=== PATIENT | female | born 1975 | race Caucasian/White ===

== ENCOUNTER 2018-07-21 11:33 | Emergency (ER) | payer BC, OTHER ==
[~2018-07-21] VITALS: Ht 172.7 cm; Wt 108.0 kg
[2018-07-21 11:43] VITALS: BP_SYST 143
--- NOTE | 2018-07-21 11:48 | NUR ---
Patient to ER bed 4 to gown for evaluation. Side rails up. Report given to Manuel DENNIS.
--- NOTE | 2018-07-21 11:49 | NUR ---
Patient is awake, alert, and oriented x4. Patient reports waking up with redness and swelling to left side of face. Patient denies pain and pruritus at this time.
--- NOTE | 2018-07-21 12:04 | NUR ---
ER Dr. Kelly at bedside examining patient.
--- NOTE | 2018-07-21 12:38 | NUR ---
Patient given written and verbal discharge instructions and verbalizes understanding. ER MD Kelly discussed with patient the results and treatment provided. Patient in stable condition. ID arm band removed. Rx of Clindamycin 300mg QID x 40 given. Patient educated on pain management and to follow up with PMD. Pain Scale 0. Opportunity for questions provided and answered. Medication side effect fact sheet provided.
[2018-07-21 12:39] VITALS: BP_SYST 138
== END 2018-07-21 12:38 | disposition home or self-care (01) ==
LOC: SED 11:33
DX: L03.211 Cellulitis of face (principal); R03.0 Elevated blood-pressure reading, without diagnosis of hypertension
CPT/HCPCS: 99283

== ENCOUNTER 2018-08-07 14:49 | Emergency (ER) | payer OTHER ==
[~2018-08-07] VITALS: Ht 175.3 cm; Wt 108.0 kg
[2018-08-07 15:12] VITALS: BP_SYST 159
--- NOTE | 2018-08-07 15:12 | NUR ---
Patient to ER bed 7 to gown for evaluation. Side rails up. Report given to JEANNIE Washburn.
--- NOTE | 2018-08-07 15:22 | NUR ---
ER Dr. Boyd at bedside examining patient.
--- NOTE | 2018-08-07 15:29 | NUR ---
Pt AAOx4 c/o vaginal bleeding soaking 5 tampons a day x 2 weeks. Pt denies N/V/D/F. No other injuries/complaints per pt/noted. Will contnue to monitor.
[2018-08-07 15:57] LABS: BASOPHILS % (AUTO) 0.7 % (0.0-2.0); EOSINOPHILS # (AUTO) 0.1 K/uL (0.0-0.4); EOSINOPHILS % (AUTO) 1.4 % (0.0-4.0); HEMATOCRIT 41.3 % (36-48); LYMPHOCYTES # (AUTO) 1.4 K/uL (1.0-5.5); LYMPHOCYTES % (AUTO) 22.8 % (20.5-51.5); MEAN CORPUSCULAR HEMOGLOBIN 30 pg (27-31); MEAN CORPUSCULAR HGB CONC 34 % (32-36); MEAN CORPUSCULAR VOLUME 87 fL (79.0-98.0); MONOCYTES # (AUTO) 0.4 K/uL (0.0-1.0); NEUTROPHILS # (AUTO) 4.3 K/uL (1.8-7.7); NEUTROPHILS % (AUTO) 68.1 % (40.0-70.0); PLATELET COUNT (AUTO) 236 K/uL (130-430); RED BLOOD CELL COUNT(AUTO) 4.74 MIL/uL (4.2-6.2); WHITE BLOOD COUNT (AUTO) 6.3 K/uL (4.8-10.8)
[2018-08-07 16:26] LABS: CALCIUM 8.9 mg/dL (8.4-11.0); CREATININE 0.68 mg/dL (0.55-1.30); POTASSIUM 4.1 mmol/L (3.5-5.1)
[2018-08-07 16:29] LABS: INR 0.9 (0.8-1.2); PROTHROMBIN TIME 9.6 SECS (9.5-12.5)
[2018-08-07 16:42] LABS: ALBUMIN 3.6 g/dL (3.4-4.8); TOTAL BILIRUBIN 0.3 mg/dL (0.0-1.0)
--- NOTE | 2018-08-07 16:52 | NUR ---
Patient given written and verbal discharge instructions and verbalizes understanding. ER MD discussed with patient the results and treatment provided. Patient in stable condition. ID arm band removed. IV catheter removed intact and dressing applied, no active bleeding. Rx of Provera given. Patient educated on pain management and to follow up with PMD. Pain Scale 0/10. Opportunity for questions provided and answered. Medication side effect fact sheet provided.
[2018-08-07 16:59] VITALS: BP_SYST 141
[2018-08-08] MEDS ORDERED: TUBERCULIN,PURIF.PROT.DERIV. 0.1 ML SYR ID ONE ×2 (05:14→05:46)
== END 2018-08-07 16:58 | disposition home or self-care (01) ==
LOC: SED 14:49
DX: N93.8 Other specified abnormal uterine and vaginal bleeding (principal); R03.0 Elevated blood-pressure reading, without diagnosis of hypertension
CPT/HCPCS: 36415; 76830-TC; 76857; 80053; 85025; 85610-TC; 85730-TC; 86580; 99284